=== PATIENT | male | born 2000 | race Caucasian/White ===

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

== ENCOUNTER 2022-01-15 14:49 | Outpatient (CLI) | payer OTHER, SELFPAY ==
[2022-01-15 15:50] LABS: Liquefaction Semen Complete in 30 min. (<30 minutes); Semen Color Opaque (Grey-opaque); Semen Viscosity Not Increased (Not Increa.); Volume Semen 1.5 mL (1.5-5.0)
[2022-01-15 15:51] LABS: Semen Immotility 50 %; Semen Non-Progressive Motility 20 %; Semen Progressive Motility 30 % (>32)
[2022-01-15 15:52] LABS: Semen Total Motility 50 (>40% (PM+NP))
[2022-01-15 15:53] LABS: Semen Morphology Result to Follow; Sperm Count 0.13 Mil/mL (60-150 million/mL)
[2022-01-22 22:00] LABS: Fructose, Semen 147 mg/dL (150-600)
== END 2022-01-15 14:50 | disposition home or self-care (01) ==
LOC: CHSLAB 14:56
DX: Z31.41 Encounter for fertility testing (principal)
CPT/HCPCS: 82757; 88160; 89320